=== PATIENT | male | born 1970 | race African-American/Black ===

== ENCOUNTER 2025-02-03 20:16 | Emergency (ER) | payer OTHER, SELFPAY ==
[2025-02-03 20:20] VITALS: BP 153/100
[2025-02-03 20:43] LABS: % Basophils 0.4 % (0-2); % Eosinophils 1.3 % (0-6); % Immature Granulocytes 0.5 % (0-0.5); % Lymphocytes 22.4 % (20.5-51.1); % Monocytes 7.9 % (1.7-9.3); % Neutrophils 67.5 % (42.2-75.2); Absolute Eosinophils 0.1 10^3/uL (0-0.7); Absolute Immature Granulocytes 0.1 10^3/uL (0-0.05); Absolute Lymphocytes 2.5 10^3/uL (1.2-3.4); Absolute Monocytes 0.9 10^3/uL (0.1-0.6); Absolute Neutrophils 7.5 10^3/uL (1.4-6.5); Hematocrit 39.7 % (39.0-52.0); Hemoglobin 13.9 g/dL (13.0-18.0); Mean Corpuscular Hgb 32.1 pg (27.0-31.0); Mean Corpuscular Volume 91.7 fL (80.0-94.0); Mean Platelet Volume 10.1 fL (7.4-10.4); Nucleated Red Blood Cells % 0 % (-); Platelet Count 314 10^3/uL (130-400); Red Blood Cell Count 4.33 10^6/uL (4.70-6.10); Red Cell Dist. Width 12.4 % (11.5-14.5)
[2025-02-03 21:02] LABS: Blood Urea Nitrogen 28 mg/dl (9-20); Carbon Dioxide 27 mmol/L (22-30); Chloride 99 mmol/L (98-107); Glucose 127 mg/dl (70-99); Sodium 141 mmol/L (135-145); eGFR 44.45
[2025-02-03 21:21] LABS: Lactic Acid 2.3 mmol/L (0.7-2.0)
--- NOTE | 2025-02-03 22:14 | ED.SKININJ ---
HPI-Injury
General
Chief Complaint: Skin Problem
Source: patient and spouse
Exam Limitations: none
Time Seen by Provider: 02/03/25 22:05
Nursing documentation reviewed up to this point in time: agreed with
History of Present Illness-Injury
Is this injury a work related problem?: No
Is pt an associate of [facility]?: No
Initial Injury comments:
54-year-old male left toe swollen kicked a dog cage a few days ago seen at an urgent care had an x-ray was negative given Bactroban and Keflex RN apparently was able to express some pus from his toe referred to the ER no fever no nausea no vomiting,
he is insulin-dependent diabetic with no other chronic medical problems
Past History
Past History
ED Past Medical History: IDDM
Social History
Tobacco: Non-smoker
Alcohol: None
Drug: None
Personal:
Living: with family
Employment: Employed
Review of Systems
Review of Systems
All Other Systems: Not applicable
Constitutional: Denies fever or fatigue
Cardiac: Reports no symptoms
ABD/GI: Reports no symptoms
: Reports no symptoms
Musculoskeletal: Reports joint swelling and edema
Hematologic/Lymphatic: Reports no symptoms
Phy Exam
Physical Exam
Physical Exam:
Physical Exam
General: no apparent distress, not acutely ill
Neck: No jaundice
Heart: s1/s2 regular rate and rhythm, no murmur. equal radial pulses.
Lungs: no acute respiratory distress. clear bilaterally
Neuro: alert and oriented. no focal neurological deficits
Skin: no rash
Psychiatric: well kept. interactive and cooperative
Extremities: Left great toe moderate size paronychia with mild surrounding erythema
Course
Orders/Labs/Results
Orders:
Orders
02/03/25 20:25
CR Foot - Left Min 3 Views Urgent
Comment:
Reason For Exam: foot swelling great toe infection
02/03/25 20:36
Basic Metabolic Panel Urgent
Complete Blood Count/With Diff Urgent
Lactate Level [Lactic Acid] Q4H
Blood Culture Urgent
LUCIE Source: Blood/Venous
Specimen Description:
02/04/25 00:30
Lactate Level [Lactic Acid] Q4H
Abnormal Lab Results
02/03/25
20:36
WBC 11.0 H 10^3/uL
(4.8-10.8)
RBC 4.33 L 10^6/uL
(4.70-6.10)
MCH 32.1 H pg
(27.0-31.0)
Abs Immat Gran (auto) 0.1 H 10^3/uL
(0-0.05)
Absolute Neuts (auto) 7.5 H 10^3/uL
(1.4-6.5)
Absolute Monos (auto) 0.9 H 10^3/uL
(0.1-0.6)
BUN 28 H mg/dl
(9-20)
Creatinine 1.8 H mg/dL
(0.7-1.3)
Glucose 127 H mg/dl
(70-99)
Lactic Acid 2.3 H mmol/L
(0.7-2.0)
02/03/25 20:36
02/03/25 20:36
Vital Signs
Initial and Last Documented VS:
Initial Vital Signs
Temp Pulse Resp BP Pulse Ox
98.3 F 97 16 153/100 100
02/03/25 20:20 02/03/25 20:20 02/03/25 20:20 02/03/25 20:20 02/03/25 20:20
Last Documented Vital Signs
Temp Pulse Resp BP Pulse Ox
98.6 F 88 18 131/79 96
02/03/25 22:18 02/03/25 22:18 02/03/25 22:18 02/03/25 22:18 02/03/25 22:18
Procedures
Digital Block
Location of injection for digital block: base of digit
Indiction for Digital Block: orthopedic procedure
Was sensory exam normal prior to exam?: not tested
Type of anesthesia: 1% Lidocaine w/o EPI
Complications: none- good anesthesia
Other
Indication for procedure:: Paronychia
Procedure completed by: Lary
Consent form signed: No
Additional Procedure:
Verbal consent timeout digital block Betadine No. 11 blade under the eponychial fold large amount of pus drained
MDM/Problems Addressed
Differential Diagnosis Includes:
Cellulitis paronychia doubt osteomyelitis
MDM/Problems Addressed:
Toe swelling
Chronic conditions affecting care: DM
Acute Exacerbation and/or Progression of Chronic Illness: DM
*Radiology
Radiology exam reviewed: preliminary read by ED provider
*Pulse Oximetry
Patient hypoxic: no
*Critical Care Note
Total Time (30-74mins, 75-104mins- exclusive of procedures): Not Applicable
Update Note
Update Note:
Update patient is not toxic injuries only few days ago labs are noted no old creatinine in her labs, he has been on Keflex, will perform I&D of his paronychia check a culture if able broaden his antibiotics
Reviewed patient's creatinine with him we will give him a copy of the labs,
ED Attending Note
-
Portions of this chart may have been created with voice recognition software.� Occasional wrong word or��sound alike� substitutions may have occurred due to the inherent limitations of voice recognition software.
Discharge Plan
Departure
Referrals:
NONE,* [Family Provider] -
Interventions
Interventions:
*Risk Screen - Suicide Last Done: 02/03/25 22:17
*General Assessment Last Done: 02/03/25 22:17
*Neglect/Abuse Screening Last Done: 02/03/25 22:17
*ED- Fall Risk Assessment Last Done: 02/03/25 22:17
*ED COVID-19 Vaccine History Last Done: 02/03/25 22:17
ED-Skin Assessment Last Done: 02/03/25 22:22
Discharge Date and Time
Print Language: GEORGIAN
[2025-02-03 22:17] VITALS: BMI 21.2
[2025-02-03 22:18] VITALS: BP 131/79
[2025-02-03] MEDS: AUGMENTIN 875 MG/125 MG 1 TABLET PO (22:55)
[2025-02-03] MEDS: VIBRAMYCIN 100 MG PO (22:55)
== END 2025-02-03 23:02 | disposition home or self-care (01) ==
LOC: EMR 20:16
PROVIDERS: Emergency Medicine; EMERGENCY PHYSICIAN Emergency Medicine
DX: L03.032 Cellulitis of left toe (principal); E11.9 Type 2 diabetes mellitus without complications
CPT/HCPCS: 64450; 99284; 10060; 73630; 80048; 83605; 85025; 87040; 87070; 87205